=== PATIENT | female | born 1955 | race Caucasian/White ===

== ENCOUNTER 2021-03-16 16:45 | Emergency (ER) | payer MEDICARE ==
[~2021-03-16] VITALS: Ht 152.4 cm; Wt 107.0 kg
[~2021-03-16 16:45] MED LIST: ASPIRIN EC81 MG PO; PERCOCET 7.5-31 EACH PO
[2021-03-16] MEDS ORDERED: HYDROCODON-ACE1 EA10 PO (20:39)
== END 2021-03-16 21:07 | disposition home or self-care (01) ==
LOC: ED 16:45
DX: S30.0XXA Contusion of lower back and pelvis, initial encounter (principal); W01.0XXA Fall on same level from slipping, tripping and stumbling without subsequent striking against object, initial encounter; Z88.0 Allergy status to penicillin; Z88.1 Allergy status to other antibiotic agents; Z88.8 Allergy status to other drugs, medicaments and biological substances
CPT/HCPCS: 73502; 99283-25